=== PATIENT | male | born 1925 | race Two or more races ===

== ENCOUNTER → 2017-01-22 | Outpatient (REF) | payer MEDICARE | LOC: M SMT 16:46 | PROVIDERS: ATTEND Nurse Practitioner Family | DX: N40.1 Benign prostatic hyperplasia with lower urinary tract symptoms (principal) | CPT/HCPCS: 87088; 87186; G0463 ==

== ENCOUNTER → 2017-02-23 | Outpatient (REF) | payer MEDICARE | LOC: M SMT 13:00 | PROVIDERS: ATTEND Nurse Practitioner Family | DX: N40.1 Benign prostatic hyperplasia with lower urinary tract symptoms (principal) | CPT/HCPCS: 51700; 87088; 87186; G0463 ==

== ENCOUNTER → 2017-03-26 | Outpatient (REF) | payer MEDICARE | LOC: M SMT 17:07 | PROVIDERS: ATTEND Nurse Practitioner Family | DX: N39.0 Urinary tract infection, site not specified (principal) | CPT/HCPCS: 51703; 87088; 87186; G0463 ==